=== PATIENT | female | born 1960 | race Caucasian/White ===

== ENCOUNTER → 2016-06-07 | Outpatient (CLI) | payer OTHER ==
[2015-05-28 08:23] VITALS: BP 146/72
[~2016-06-07] MED LIST: ASPI81TA44 PO; ATOR20TA58 PO; BUDE10.2 IH; CYCL10TA2 PO; DAPA10TA PO; FLUO20CA16 PO; FURO20TA3 PO; GABA600T2 PO; INSU100V13 SQ; MONT10TA6 PO; NAPR1TAB21 PO; OXYC20TA34 PO; RANI150C PO; VENTOLIN HFA18 GM INH
--- NOTE | 2016-06-07 17:38 | RAD ---
DATE: 06/07/2016 EXAM: DIGITAL SCREEN BILAT W/CAD HISTORY: Screening study. COMPARISON: 04/28/2015 This study was interpreted with the benefit of Computerized Aided Detection (CAD). FINDINGS: Digital MLO and CC mammograms of both breasts were obtained. Additional CC digital mammograms of both breasts were obtained. Comparison study is dated 04/28/2015 The breast parenchyma is composed of scattered fibroglandular densities which can obscure a lesion on mammography (breast density code B). No spiculated mass is seen. No malignant appearing calcification or area of architectural distortion is noted. A few benign-appearing calcifications are seen scattered throughout both breasts. Since the previous examination there has been no significant interval change. IMPRESSION: BI-RADS Category 1, negative. There is no mammographic evidence of malignancy. Routine yearly screening mammography is recommended for follow-up. BI-RADS CATEGORY: 1 NEGATIVE RECOMMENDED FOLLOW-UP: 12M 12 MONTH FOLLOW-UP PQRS compliance statement: Patient information was entered into a reminder system with a target due date 06/07/2017 for the next mammogram. Mammography is a sensitive method for finding small breast cancers, but it does not detect them all and is not a substitute for careful clinical examination. A negative mammogram does not negate a clinically suspicious finding and should not result in delay in biopsying a clinically suspicious abnormality. "Our facility is accredited by the [employer] Mammography Program."
== END | disposition home or self-care (01) ==
LOC: MAMMO 08:46
PROVIDERS: ATTEND Family Medicine
DX: Z12.31 Encounter for screening mammogram for malignant neoplasm of breast (principal)
CPT/HCPCS: G0202; 77067

== ENCOUNTER → 2016-08-25 | Outpatient (CLI) | payer OTHER ==
[2015-05-28 08:23] VITALS: BP 146/72
[~2016-08-25] MED LIST changes: +REGADENOSON 0.4 MG/5 ML DISP.SYRIN. IV ONE
--- NOTE | 2016-08-25 18:18 | RAD ---
APPROVED REPORT Test Type: Pharmacological Stress Nurse/Tech: Tian Pate Test Indications: chest pain, palpitations Cardiac History: see ehr Medications: see ehr Medical History: see ehr Resting ECG: SR Resting Heart Rate: 82 bpm Resting Blood Pressure: 110/56mmHg Pretest Chest Pain: None Nurse/Tech Notes Lungs CTA, S1, S2 Consent: The procedure was explained to the patient in lay terms. Informed consent was witnessed. Prabhakar eout was entered into [employer]. History and Stress Test performed by Tian Pate R.N. Pharm. Details Pharmacologic stress testing was performed using 0.4mg per 5ml of regadenoson given intravenously ove r 7-10 seconds. Stress Symptoms No chest pain or symptoms. POST EXERCISE Reason for Termination: Infusion complete Max HR: 100 bpm Max Blood Pressure: 126/63mmHg Blood Pressure response to exercise: Normal blood pressure response during stress. Chest Pain: No. Arrhythmia: No. ST Change: No. INTERPRETATION Stress EKG Conclusion: No acute changes were noted. Imaging Protocol IMAGE PROTOCOL: Rest Tc-99m/stress Tc-99m 1 day Rest: Stress: Viability: Radiopharm.Tc99m SiaylcvwiAh90h Sestamibi Dose10.5mCi 32.1mCi Duration 15min. 10min. Img Date 08/25/2016 08/25/2016 Inj-Img [id number]. 60min. Rest Admin Site:IV - Left AntecubitalAdministrator:RT David (R)(N) Stress Admin Site: IV - Left AntecubitalAdministrator: ADRIANA Hawley STRESS DATA End Diast. Vol.66.0mlAv. Heart Rate89.0bpm End Syst. Vol.5.0mlCO Index BSA0.0L/min Myocardial Rzsd110.0gEject. Pbrpqbuw45.0% Stress Rates Pk. Fill Rate3.06EDV/secLVtime Pk. Fill 96.50msec Pk. Empty Rate5.84ESV/secLVtime Pk. Xwdxh487.71msec 04/06 Pk. Fill1.85EDV/sec Stress Scores Regional WT0.00Summed WT3.00 Regional WM0.00Summed WM0.00 LV Perf. Quant 17 Seg. SSS5.00 17 Seg. SRS5.00 17 Seg. SDS3.00 Stress Defect Extent (% LAD)0.00Rest Defect Extent (% LAD)0.00Rev. Defect Extent (% LAD)0.00 Stress Defect Extent (% LCX) 40.00Rest Defect Extent (% LCX)43.80Rev. Defect Extent (% LCX)0.00 Stress Defect Extent (% RCA)0.00Rest Defect Extent (% RCA)0.00Rev. Defect Extent (% RCA)0.00 Stress Defect Extent (% KI)7.00Rest Defect Extent (% KI)7.60Rev. Defect Extent (% KI)0.00 Conclusion 1. No perfusion defects suggestive of myocardial ischemia with pharmacological stress. 2. Moderate sized mixed perfusion defect seen in the lateral wall. 3. Since there is normal wall motion and wall thickening in the lateral wall the defect probably repr esents myocardial ischemia. 4. Normal wall motion and wall thickening with an ejection fraction of more than 80%. 5. Scan indicates moderate risk for future cardiac events.
== END | disposition home or self-care (01) ==
LOC: NM 08:43 → EDSTATUS 11:30
PROVIDERS: ATTEND Internal Medicine Cardiovascular Disease
DX: R07.9 Chest pain, unspecified (principal); R00.2 Palpitations; Z82.49 Family history of ischemic heart disease and other diseases of the circulatory system
CPT/HCPCS: 78452; 93017; 93225; 96374; 96375; 96376; A9500; J2785

== ENCOUNTER → 2016-11-08 | Outpatient (CLI) | payer OTHER ==
[2015-05-28 08:23] VITALS: BP 146/72
[~2016-11-08] MED LIST changes: -REGADENOSON 0.4 MG/5 ML DISP.SYRIN. IV ONE
--- NOTE | 2016-11-08 11:26 | RAD ---
Indication pain. AP oblique and lateral views of the right wrist were obtained. No bony abnormality is seen
== END | disposition home or self-care (01) ==
LOC: RAD 10:47
PROVIDERS: ATTEND Family Medicine
DX: M25.531 Pain in right wrist (principal)
CPT/HCPCS: 73110

== ENCOUNTER 2016-11-15 09:52 | Outpatient (CLI) | payer OTHER ==
[2016-11-15] VITALS (14 sets, daily range): BP systolic 118–141; BP diastolic 62–84
[~2016-11-15] VITALS: Ht 160 cm; Wt 90.7 kg
[2016-11-15 10:19] LABS: HEMATOCRIT 45.9 % (36.0-47.0); HEMOGLOBIN 15.6 g/dL (12.0-15.5); RED BLOOD COUNT 5.57 x10^6/uL (3.50-5.40); RED CELL DISTRIBUTION WIDTH 16.4 % (11.5-14.5); WHITE BLOOD COUNT 9.3 x10^3/uL (4.0-11.0)
[2016-11-15] MEDS ORDERED: ERGO500027 PO (10:20)
[2016-11-15] MEDS ORDERED: OXYC10TA PO (10:20)
[2016-11-15] MEDS ORDERED: INSU100I16 SQ (10:20)
[2016-11-15] MEDS ORDERED: TERB250T8 PO (10:20)
[2016-11-15] MEDS ORDERED: LIDOCAINE 2% 20 ML VIAL. ONE (10:31)
[2016-11-15] MEDS ORDERED: IODIXANOL 320 MG/ML 100 ML VIAL. ONE (10:31)
[2016-11-15] MEDS ORDERED: HEPARIN 25,000UTS/500ML PREMIX 500 ML IV ONE (10:31)
[2016-11-15 10:35] LABS: CALCIUM 8.4 mg/dL (8.5-10.1); CREATININE 0.6 mg/dL (0.6-1.0); GFR 103.4; POTASSIUM 4.1 mmol/L (3.5-5.1)
[2016-11-15 10:42] LABS: PROTHROMBIN TIME PATIENT 12.2 SEC (11.7-14.0)
[2016-11-15] MEDS ORDERED: IOHEXOL 300 MG/ML 100ML VIAL. ONE ×2 (10:44→11:36)
[2016-11-15] MEDS ORDERED: MIDAZOLAM HCL/PF 2 MG/2 ML VIAL. ONE (11:26)
[2016-11-15] MEDS ORDERED: fentaNYL PF VIAL 100 MCG/2 ML VIAL ONE (11:27)
[2016-11-15] MEDS ORDERED: IOHEXOL 300 MG/ML 100ML VIAL. IART ONE (11:45)
[2016-11-15] MEDS ORDERED: fentaNYL PF VIAL 100 MCG/2 ML VIAL IV ONE (11:45)
[2016-11-15] MEDS ORDERED: LIDOCAINE 2% 20 ML VIAL. IJ ONE (11:45)
[2016-11-15] MEDS ORDERED: MIDAZOLAM HCL/PF 2 MG/2 ML VIAL. IV ONE (11:45)
--- NOTE | 2016-11-15 12:32 | PDOC ---
MODERATE SEDATION ASSESSMENT RISKS/ALTERNATIVES Risks/Alternatives Risks and alternatives of this type of sedation and procedure discussed with: RISK/ALTERNATIVES: Patient H & P ON CHART H & P H & P on chart and reviewed for co-morbid conditions and appropriate labs. H&P ON CHART: Yes STATUS PREG STATUS ASSESSED: Yes MEDS/ALLERGIES REVIEWED Meds/Allergies Reviewed Medications and Allergies including time and route of recently administered narcotics and sedatives. MEDS/ALLERGIES REVIEWED: Yes ASA RATING ASA RATING: II AIRWAY ASSESSMENT Airway Assessment Airway patency, oral function limitations, presence of caps, crowns, dentures, partials, and ability to extend neck assessed. AIRWAY ASSESSMENT: Yes MALLAMPATI SCORE MALLAMPATI SCORE: II PRE-SEDATION ASSESSMENT PRE-SEDATION ASSESSMENT: Yes DRE BECKWITH MD Nov 15, 2016 12:32
--- NOTE | 2016-11-15 18:26 | CARD ---
APPROVED REPORT Procedure(s) performed: SEDATION TIME: 38 MINUTES HISTORY hypertension: dyslipidemia. INDICATION The indication(s) include : positive stress test, chest pain. CASE TECHNIQUE The patient was brought electively into the cardiac catheterization lab. A timeout was performed conf irming the patient's name, date of , procedure, and site of procedure. All necessary parties wer e wearing the appropriate personal protective equipment and radiation monitoring devices. After expla ining the risks and benefits of the procedure, informed consent was obtained.(See nursing notes for m edications administered). The right groin was sterilely prepped and draped. The right femoral groin w as infiltrated with 2% Lidocaine subcutaneous anesthesia. During this case, Fluoroscopy and low osmol ar contrast were used for imaging. A sheath was inserted into the right femoral artery without diffic ulty. Coronary angiography was performed using coronary diagnostic catheters. The left coronary syste m was accessed and visualized with a Diagnostic catheter. The right coronary system was accessed and visualized with a Diagnostic catheter. The left ventricle was accessed and visualized with a Diagnost ic catheter. Left ventricular/Aortic Valve gradient assessed on pullback. Left ventriculogram was per formed in CREWS projection. Hemostasis was obtained with manual pressure following sheath removal witho ut any complications. The patient tolerated the procedure well and there were no complications associ ated with the procedure. Coronary Angiography The patient's coronary anatomy is right dominant. The left main coronary artery is a large size vessel free of disease. The left main trifurcates to th e left anterior descending, circumflex, and ramus. The left anterior descending artery is a medium size vessel free of disease. The first diagonal branc h is a small size vessel free of disease. The second diagonal branch is a small size vessel free of d isease. The third diagonal branch is a small size vessel free of disease. The circumflex artery is a medium size vessel free of disease. The first obtuse marginal branch is a small size vessel free of disease. The second obtuse marginal branch is a small size vessel free of d isease. The third obtuse marginal branch is a small size vessel free of disease. The ramus intermedius artery is a small size vessel free of disease. The right coronary artery is a large size vessel free of disease. The right posterior descending tristan ry is a medium size vessel free of disease. The right posterolateral branch is a small size vessel fr ee of disease. Left Ventriculography The left ventricle is normal in size with normal contractility. The left ventricular ejection fractio n is estimated to be 80%. The left ventricular end diastolic pressure is 16 mmHg. There was no gradie nt across the aortic valve upon pullback. Conclusion This pt has no significant CAD and a high normal LV systolic function. I would recommend medical treatment with diet, exercise, weight loss and tight control of the BP
== END 2016-11-15 17:15 | disposition home or self-care (01) ==
LOC: CCL 09:52
PROVIDERS: ATTEND Internal Medicine Cardiovascular Disease
DX: R94.39 Abnormal result of other cardiovascular function study (principal); E78.5 Hyperlipidemia, unspecified; E78.00 Pure hypercholesterolemia, unspecified; J44.9 Chronic obstructive pulmonary disease, unspecified; K21.9 Gastro-esophageal reflux disease without esophagitis; E11.9 Type 2 diabetes mellitus without complications; F41.9 Anxiety disorder, unspecified; F32.9 Major depressive disorder, single episode, unspecified; Z90.710 Acquired absence of both cervix and uterus; Z87.39 Personal history of other diseases of the musculoskeletal system and connective tissue; Z72.0 Tobacco use; Z79.01 Long term (current) use of anticoagulants
CPT/HCPCS: 36415; 80048; 85027; 85610; 85730; 93458; 99152; 99153; C1769; C1892; J1644; J2250; J3010; Q9967; J2001

== ENCOUNTER → 2017-05-18 | Outpatient (CLI) | payer OTHER | END | disposition home or self-care (01) | LOC: US 06:33 | DX: K76.0 Fatty (change of) liver, not elsewhere classified (principal); R16.0 Hepatomegaly, not elsewhere classified | CPT/HCPCS: 76705 ==

== ENCOUNTER 2017-05-29 08:16 | Inpatient (IN) | payer OTHER ==
[2017-05-29] MEDS ORDERED: IPRATRPIUM/ALBUTEROL 0.5/2.5MG 3 ML NEBU. (08:33)
[2017-05-29] MEDS: IPRATRPIUM/ALBUTEROL 0.5/2.5MG 3 ML NEBU. NEB ×3 (08:35→19:33)
[2017-05-29 08:53] LABS: ADD MAN DIFF? NO
[2017-05-29 09:00] LABS: BASO % 0 % (0-3); EOS % 0 % (0-3); HEMATOCRIT 42.5 % (36.0-47.0); HEMOGLOBIN 14.4 g/dL (12.0-15.5); LYMPH # 1.2 x10^3/uL (1.0-4.8); LYMPH % 13 % (24-48); MEAN CORPUSCULAR HEMOGLOBIN 30 pg (25-35); MEAN CORPUSCULAR HGB CONC 34 g/dL (31-37); MEAN CORPUSCULAR VOLUME 87 fL (79-100); MONO # 1.3 x10^3/uL (0.0-1.1); MONO % 15 % (0-9); NEUT # 6.5 x10^3uL (1.8-7.7); NEUT % 72 % (31-73); PLATELET COUNT 132 x10^3/uL (140-400); RED BLOOD COUNT 4.87 x10^6/uL (3.50-5.40); RED CELL DISTRIBUTION WIDTH 13.9 % (11.5-14.5)
[2017-05-29] MEDS: ONDANSETRON PF 4 MG/2 ML VIAL. IV (09:07)
[2017-05-29] MEDS: IV NORMAL SALINE 1000ML BAG 1,000 ML IV ×4 (09:11→20:26)
[2017-05-29 09:15] LABS: LIPASE 146 U/L (73-393)
[2017-05-29 09:16] LABS: ANION GAP 12 (6-14); BLOOD UREA NITROGEN 27 mg/dL (7-20); BUN/CREATININE RATIO 34 (6-20); CALCIUM 8.6 mg/dL (8.5-10.1); CARBON DIOXIDE 26 mmol/L (21-32); CHLORIDE 93 mmol/L (98-107); CREATININE 0.8 mg/dL (0.6-1.0); GFR 74.2; GLUCOSE 261 mg/dL (70-99); POTASSIUM 4.5 mmol/L (3.5-5.1); SODIUM 131 mmol/L (136-145)
[2017-05-29 09:21] LABS: ALBUMIN 2.4 g/dL (3.4-5.0); ALBUMIN/GLOBULIN RATIO 0.5 (1.0-1.7); ALK PHOS 94 U/L (46-116); ALT (SGPT) 22 U/L (14-59); AST (SGOT) 43 U/L (15-37); TOTAL BILIRUBIN 0.5 mg/dL (0.2-1.0); TOTAL PROTEIN 7.1 g/dL (6.4-8.2)
[2017-05-29] MEDS: ALBUTEROL SULFATE 2.5 MG/3 ML NEBU. CONT NEB (09:23)
[2017-05-29 09:38] LABS: LACTIC ACID 1.5 mmol/L (0.4-2.0)
[2017-05-29 09:41] LABS: BASE EXCESS ABG -2 mmol/L (-3-3); HCO3 ABG 23 mmol/L (21-28); PCO2 ABG 43 mmHg (35-46); PH ABG 7.35 (7.35-7.45); PO2 ABG 60 mmHg (75-108); SAT O2 ABG 90 % (92-99)
[2017-05-29 09:55] LABS: NT-PRO BNP 268 pg/mL (0-124)
[2017-05-29 10:41] LABS: INFLUENZA A PATIENT NEGATIVE (NEGATIVE)
[2017-05-29 10:42] LABS: INFLUENZA B PATIENT POSITIVE (NEGATIVE); OBC FLU VALID
[2017-05-29] MEDS ORDERED: ONDANSETRON PF 4 MG/2 ML VIAL. IV (12:00)
[2017-05-29] MEDS ORDERED: DEXTROSE 50% 25 GM / 50ML DISP.SYRIN. IV (12:00)
[2017-05-29] MEDS: OSELTAMIVIR 75 MG CAPSULE PO ×2 (12:10→20:25)
[2017-05-29] MEDS: ACETAMINOPHEN 500 MG TABLET PO (12:24)
[2017-05-29] MEDS: CYCLOBENZAPRINE 10 MG TABLET. PO ×2 (12:25→20:25)
[2017-05-29] MEDS: ASPIRIN CHEWABLE 81 MG TABLET. PO (12:25)
[2017-05-29] MEDS: ASCORBIC ACID 500 MG TABLET PO ×2 (12:25→20:25)
[2017-05-29] MEDS: FLUoxetine HCL 20 MG CAPSULE PO (12:25)
[2017-05-29] MEDS: NICOTINE 21MG PATCH. TD (12:26)
[2017-05-29] MEDS: oxyCODONE IR 5 MG TABLET PO (12:36)
[2017-05-29 12:44] LABS: BILIRUBIN,URINE SMALL (NEG); CLARITY,URINE TURBID; COLOR,URINE AMBER; GLUCOSE,URINE 250 mg/dL (NEG); NITRITE,URINE NEGATIVE (NEG); PROTEIN,URINE 100 mg/dL (NEG-TRACE)
[2017-05-29] MEDS ORDERED: NON FORMULARY ITEM (Albuterol Sulfate (Ventolin Hfa Inhaler) 2 PUFF) INH (13:00)
[2017-05-29 13:08] LABS: BACTERIA,URINE 0 /HPF (0-FEW); SQUAMOUS EPITHELIAL CELL,UR MANY /LPF
[2017-05-29] MEDS: GABAPENTIN 300 MG CAPSULE. PO ×2 (13:36→20:25)
[2017-05-29] MEDS: FAMOTIDINE 20 MG TABLET. PO ×2 (13:37→20:25)
[2017-05-29] MEDS: ALBUTEROL SULFATE 2.5 MG/3 ML NEBU. NEB ×2 (16:00→19:35)
[2017-05-29 16:20] LABS: POC GLUCOSE 236 mg/dL (70-99)
[2017-05-29] MEDS: INSULIN ASPART 300 UNITS/3 ML INSULN.PEN SQ (17:13)
[2017-05-29] MEDS: BUDESONIDE 0.5 MG/2 ML NEBU. NEB (19:32)
[2017-05-29 20:25] LABS: POC GLUCOSE 162 mg/dL (70-99)
[2017-05-29] MEDS: MONTELUKAST SODIUM 10 MG TABLET. PO (20:25)
[2017-05-29] MEDS: INSULIN DETEMIR 300 UNITS/3 ML INSULN.PEN. SQ (20:30)
[2017-05-29] MEDS: ATORVASTATIN CALCIUM 20 MG TABLET PO (20:31)
[2017-05-29] MEDS ORDERED: NON FORMULARY ITEM (Budesonide/Formoterol Fumarate (Symbicort 160-4.5 Mcg Inhaler) 1 PUFF) IH (21:00)
[2017-05-30 05:53] LABS: ANION GAP 10 (6-14); BLOOD UREA NITROGEN 15 mg/dL (7-20); CARBON DIOXIDE 26 mmol/L (21-32); CHLORIDE 102 mmol/L (98-107); CREATININE 0.5 mg/dL (0.6-1.0); GFR 127.6; GLUCOSE 57 mg/dL (70-99); POTASSIUM 3.4 mmol/L (3.5-5.1); SODIUM 138 mmol/L (136-145)
[2017-05-30] MEDS: INSULIN ASPART 300 UNITS/3 ML INSULN.PEN SQ ×3 (07:30→16:30)
[2017-05-30] MEDS: ALBUTEROL SULFATE 2.5 MG/3 ML NEBU. NEB ×2 (08:00→12:00)
[2017-05-30] MEDS: IV NORMAL SALINE 1000ML BAG 1,000 ML IV ×2 (08:03→18:17)
[2017-05-30 08:08] LABS: POC GLUCOSE 61 mg/dL (70-99)
[2017-05-30 08:08] LABS: POC GLUCOSE 67 mg/dL (70-99)
[2017-05-30] MEDS: IPRATRPIUM/ALBUTEROL 0.5/2.5MG 3 ML NEBU. NEB ×4 (08:12→19:34)
[2017-05-30] MEDS: BUDESONIDE 0.5 MG/2 ML NEBU. NEB ×2 (08:12→19:34)
[2017-05-30] MEDS: GABAPENTIN 300 MG CAPSULE. PO ×3 (09:00→20:50)
[2017-05-30] MEDS: ASPIRIN CHEWABLE 81 MG TABLET. PO (09:37)
[2017-05-30] MEDS: FAMOTIDINE 20 MG TABLET. PO ×2 (09:37→20:51)
[2017-05-30] MEDS: FLUoxetine HCL 20 MG CAPSULE PO (09:38)
[2017-05-30] MEDS: ASCORBIC ACID 500 MG TABLET PO ×2 (09:38→20:51)
[2017-05-30] MEDS: CYCLOBENZAPRINE 10 MG TABLET. PO ×2 (09:38→20:50)
[2017-05-30] MEDS: OSELTAMIVIR 75 MG CAPSULE PO ×2 (09:38→20:51)
[2017-05-30] MEDS: NICOTINE 21MG PATCH. TD (09:39)
[2017-05-30] MEDS: oxyCODONE IR 5 MG TABLET PO ×2 (10:04→18:19)
[2017-05-30 11:54] LABS: POC GLUCOSE 67 mg/dL (70-99)
[2017-05-30 15:25] LABS: LEGIONELLA AG UR Negative (Negative)
[2017-05-30 17:20] LABS: POC GLUCOSE 132 mg/dL (70-99)
[2017-05-30] MEDS ORDERED: ALBUTEROL SULFATE 2.5 MG/3 ML NEBU. NEB (20:00)
[2017-05-30 20:49] LABS: POC GLUCOSE 177 mg/dL (70-99)
[2017-05-30] MEDS: ATORVASTATIN CALCIUM 20 MG TABLET PO (20:50)
[2017-05-30] MEDS: LACTOBACILLUS RHAMNOSUS GG 1 CAPSULE. PO (20:50)
[2017-05-30] MEDS: MONTELUKAST SODIUM 10 MG TABLET. PO (20:50)
[2017-05-30] MEDS: INSULIN DETEMIR 300 UNITS/3 ML INSULN.PEN. SQ (20:56)
[2017-05-31] MEDS: IV NORMAL SALINE 1000ML BAG 1,000 ML IV (03:37)
[2017-05-31] MEDS: oxyCODONE IR 5 MG TABLET PO (03:37)
[2017-05-31] MEDS: IPRATRPIUM/ALBUTEROL 0.5/2.5MG 3 ML NEBU. NEB (07:22)
[2017-05-31] MEDS: BUDESONIDE 0.5 MG/2 ML NEBU. NEB (07:23)
[2017-05-31] MEDS: INSULIN ASPART 300 UNITS/3 ML INSULN.PEN SQ (07:30)
[2017-05-31 08:05] LABS: POC GLUCOSE 55 mg/dL (70-99)
[2017-05-31 08:05] LABS: POC GLUCOSE 84 mg/dL (70-99)
[2017-05-31] MEDS: ASPIRIN CHEWABLE 81 MG TABLET. PO (08:44)
[2017-05-31] MEDS: ASCORBIC ACID 500 MG TABLET PO (08:44)
[2017-05-31] MEDS: NICOTINE 21MG PATCH. TD (08:44)
[2017-05-31] MEDS: LACTOBACILLUS RHAMNOSUS GG 1 CAPSULE. PO (08:44)
[2017-05-31] MEDS: CYCLOBENZAPRINE 10 MG TABLET. PO (08:44)
[2017-05-31] MEDS: OSELTAMIVIR 75 MG CAPSULE PO (08:44)
[2017-05-31] MEDS: FLUoxetine HCL 20 MG CAPSULE PO (08:44)
[2017-05-31] MEDS: GABAPENTIN 300 MG CAPSULE. PO (08:44)
[2017-05-31] MEDS: FAMOTIDINE 20 MG TABLET. PO (08:52)
[2017-05-31] MEDS: PNEUMOC CONJ VACC 23-VALENT 0.5 ML VIAL. VAX IM (10:05)
[2017-05-31] MEDS: FLU VACC QS2017-18 (36MOS+)/PF 0.5 ML SYRINGE. VAX IM (10:06)
[2017-06-05] MEDS ORDERED: ERGOCALCIFEROL (VITAMIN D2) 50,000 UNIT CAPSULE. PO (13:00)
== END 2017-05-31 11:02 | disposition home or self-care (01) | DRG 193 ==
LOC: 5 NORTH 10:30 → ER 08:16 → 5 NORTH 09:57
DX: J10.08 Influenza due to other identified influenza virus with other specified pneumonia (principal); J96.21 Acute and chronic respiratory failure with hypoxia; Z99.81 Dependence on supplemental oxygen; Z88.8 Allergy status to other drugs, medicaments and biological substances; J15.9 Unspecified bacterial pneumonia; E86.0 Dehydration; J44.0 Chronic obstructive pulmonary disease with (acute) lower respiratory infection; J44.1 Chronic obstructive pulmonary disease with (acute) exacerbation; E11.65 Type 2 diabetes mellitus with hyperglycemia; E78.5 Hyperlipidemia, unspecified; F17.200 Nicotine dependence, unspecified, uncomplicated; F32.9 Major depressive disorder, single episode, unspecified; F41.1 Generalized anxiety disorder; G89.29 Other chronic pain; K21.9 Gastro-esophageal reflux disease without esophagitis; Z90.710 Acquired absence of both cervix and uterus; Z98.49 Cataract extraction status, unspecified eye; M54.9 Dorsalgia, unspecified; J18.1 Lobar pneumonia, unspecified organism; I08.3 Combined rheumatic disorders of mitral, aortic and tricuspid valves
CPT/HCPCS: 36415; 36600; 71045; 80048; 80053; 81001; 82805; 82962; 83605; 83690; 83880; 85025; 87070; 87086; 87186; 87205; 87449; 87804; 87804-59; 90686; 90732; 93005; 93306; 94640; 94644; 94760; 96365; 96375; 99285; 99285-25; J1815; J1956; J2405; J7030; J7613; J7620; J7626

== ENCOUNTER → 2017-09-07 | Outpatient (CLI) | payer OTHER | END | disposition home or self-care (01) | LOC: RAD 10:11 | DX: J18.9 Pneumonia, unspecified organism (principal); R91.8 Other nonspecific abnormal finding of lung field | CPT/HCPCS: 71046 ==

== ENCOUNTER → 2017-09-12 | Outpatient (CLI) | payer OTHER | END | disposition home or self-care (01) | LOC: MAMMO 14:18 | DX: Z12.31 Encounter for screening mammogram for malignant neoplasm of breast (principal) | CPT/HCPCS: 77067 ==

== ENCOUNTER → 2018-08-04 | Outpatient (CLI) | payer OTHER ==
[2017-05-31 10:30] VITALS: BP 141/63
[~2018-08-04] MED LIST changes: +ASCO500T3 PO; -ASPI81TA44 PO; +ASPI81TA59 PO; +ERGO500027 PO; -GABA600T2 PO; +GABA600T7 PO; +INSU100I16 SQ; +INSU100V11 SQ; +LEVO500T59 PO; +OSEL75CA PO; +OXYC10TA PO; +TERB250T11 PO
--- NOTE | 2018-08-15 18:36 | EEG ---
DATE OF SERVICE: 08/04/2018 ELECTROENCEPHALOGRAM NUMBER: [id number] OBJECTIVE: This is a 58-year-old female patient with history of abnormal movements. EEG was requested to help rule out seizure. METHODS: Twenty electrodes were applied according to the international 10-20 electrode placement system. EKG monitoring, hyperventilation, intermittent photic stimulation, monopolar and bipolar montages are routinely utilized. The record was obtained on a digital system with video monitoring. FINDINGS: 1. Background: The patient was recorded in the awake and drowsy states. No actual sleep state was recorded. The overall background amplitude is 10-30 microvolts. A posterior dominant rhythm of 8 Hz is observed. 2. Abnormalities: No specific epileptiform discharge or electrographic seizure is seen. No focal or diffuse slowing. 3. Activation: Hyperventilation was performed with good efforts and normal response. Intermittent photic stimulation was performed with photic driving. No specific epileptiform discharge or electrographic seizure induced by hyperventilation or intermittent photic stimulation. IMPRESSION: This electroencephalogram is a normal study for the awake and drowsy states. No actual sleep state was recorded. No focal, lateralizing, specific epileptiform discharge or electrographic seizure is seen. BREA HERRING MD DR: Marzena JOB#: [id number] / [id number] KIMBERLEE
== END | disposition home or self-care (01) ==
LOC: RT 12:45
PROVIDERS: ATTEND Psychiatry & Neurology Neurology
DX: R25.9 Unspecified abnormal involuntary movements (principal)
CPT/HCPCS: 95816

== ENCOUNTER → 2018-08-30 | Outpatient (CLI) | payer OTHER ==
[2017-05-31 10:30] VITALS: BP 141/63
[2018-08-30 12:22] LABS: BARBITURATES POS (NEG); BENZODIAZEPINES NEG (NEG); CANNABINOIDS NEG (NEG); COCAINE NEG (NEG); METHADONE NEG (NEG); OPIATES NEG (NEG); PHENCYCLIDINE NEG (NEG)
[2018-08-30 12:23] LABS: AMPHETAMINE/METHAMPHETAMINE NEG (NEG)
== END | disposition home or self-care (01) ==
LOC: LAB 11:19
PROVIDERS: ATTEND Psychiatry & Neurology Neurology
DX: R25.9 Unspecified abnormal involuntary movements (principal)
CPT/HCPCS: 80307

== ENCOUNTER → 2018-09-12 | Outpatient (CLI) | payer OTHER ==
[2017-05-31 10:30] VITALS: BP 141/63
[~2018-09-12] MED LIST changes: +MONT10TA49 PO; -MONT10TA6 PO
--- NOTE | 2018-09-13 09:11 | RAD ---
DATE: 09/12/2018 EXAM: DIGITAL SCREEN BILAT W/CAD HISTORY: Routine screening COMPARISON: 09/12/2017 This study was interpreted with the benefit of Computerized Aided Detection (CAD). Breast Density: SCATTERED The breast parenchyma shows scattered fibroglandular densities. Breast parenchyma level B. FINDINGS: No new or enlarging breast densities are seen. Several benign type calcifications are again noted. No suspicious microcalcifications have developed. IMPRESSION: There is no mammographic evidence of malignancy in either breast. BI-RADS CATEGORY: 2 BENIGN FINDING(S) RECOMMENDED FOLLOW-UP: 12M 12 MONTH FOLLOW-UP PQRS compliance statement: Patient information was entered into a reminder system with a target due date for the next mammogram. Mammography is a sensitive method for finding small breast cancers, but it does not detect them all and is not a substitute for careful clinical examination. A negative mammogram does not negate a clinically suspicious finding and should not result in delay in biopsying a clinically suspicious abnormality. "Our facility is accredited by the [employer] Mammography Program."
== END | disposition home or self-care (01) ==
LOC: MAMMO 14:36
PROVIDERS: ATTEND Family Medicine
DX: Z12.31 Encounter for screening mammogram for malignant neoplasm of breast (principal); N64.89 Other specified disorders of breast
CPT/HCPCS: 77067

== ENCOUNTER → 2019-03-12 | Outpatient (CLI) | payer MEDICAID ==
[2017-05-31 10:30] VITALS: BP 141/63
--- NOTE | 2019-03-12 17:49 | RAD ---
Examination: GORDON ART STUDY LOWER EXTREM MOI History: Former smoker, diabetes, leg pain Comparison/Correlation: None Findings: GORDON exam was performed. Right brachial blood pressure of 143 mmHg noted. Left brachial blood pressure 152 mmHg mercury. Right ankle blood pressure of 166 mm millimeters mercury. Left ankle blood pressure of 157 mmHg. Right GORDON is 1.09. Left GORDON is 1.03. Impression: Normal bilateral GORDON. Electronically signed by: Ron Valdez MD (03/12/2019 5:47 PM) [facility]
== END | disposition home or self-care (01) ==
LOC: US 15:18
PROVIDERS: ATTEND Family Medicine
DX: E11.51 Type 2 diabetes mellitus with diabetic peripheral angiopathy without gangrene (principal); I10 Essential (primary) hypertension; Z87.891 Personal history of nicotine dependence
CPT/HCPCS: 93922

== ENCOUNTER → 2019-12-14 | Outpatient (CLI) | payer MEDICAID ==
[2017-05-31 10:30] VITALS: BP 141/63
[~2019-12-14] MED LIST changes: -TERB250T11 PO; +TERB250T84 PO
--- NOTE | 2019-12-14 16:13 | CARD ---
MR#: [id number] Date of Study: 12/14/2019 Ordering Physician: RICHARD SIGALA, Referring Physician: RICHARD SIGALA, Tech: Lizet Chen APPROVED REPORT EXAM: Two-dimensional and M-mode echocardiogram with Doppler and color Doppler. Other Information Quality : AverageHR: 62bpm Technically limited study due to body habitus. INDICATION Hypertension/HCVD RISK FACTORS Hypertension Hyperlipidemia Diabetes 2D DIMENSIONS RVDd3.1 (2.9-3.5cm)Left Atrium(2D)3.7 (1.6-4.0cm) IVSd1.3 (0.7-1.1cm)Aortic Root(2D)2.8 (2.0-3.7cm) LVDd4.5 (3.9-5.9cm)LVOT Diameter1.9 (1.8-2.4cm) PWd1.0 (0.7-1.1cm)LVDs2.7 (2.5-4.0cm) FS (%) 39.7 %SV63.7 ml LVEF(%)70.5 (>50%) Aortic Valve AoV Peak Ras.158.7cm/sAoV VTI41.5cm AO Peak GR.10.1mmHgLVOT Peak Ras.136.8cm/s AO Mean GR.5mmHgAVA (VMAX)2.54cm2 Mitral Valve MV E Wjigstac981.1cm/sMV E Peak Gr.6mmHg MV DECEL [id number] A Cqfhxpfq76.0cm/s MV E Mean Gr.2mmHgE/A Ratio1.3 Pulmonary Valve PV Peak Wwrnlhbk64.3cm/s Tricuspid Valve TR P. Zwofekzl130mk/sRAP WYZDZVXL5apEn TR Peak Gr.53kvFpXUXY79ptMb Pulmonary Vein S1 Cwlbqvjh09.9cm/sD2 Cmpifjgo39.2cm/s PVa noecboih971fjrs LEFT VENTRICLE The left ventricle is normal size. There is mild to moderate concentric left ventricular hypertrophy. The left ventricular systolic function is normal and the ejection fraction is within normal range. T he Ejection Fraction is 55%. There is normal LV segmental wall motion. Transmitral Doppler flow patte rn is Grade II-pseudonormal filling dynamics. RIGHT VENTRICLE The right ventricle is normal size. There is normal right ventricular wall thickness. The right ventr icular systolic function is normal. ATRIA The left atrium size is normal. The right atrium size is normal. The interatrial septum is intact wit h no evidence for an atrial septal defect or patent foramen ovale as noted on 2-D or Doppler imaging. AORTIC VALVE The aortic valve is thickened but opens well. Doppler and Color Flow revealed no significant aortic r egurgitation. There is no significant aortic valvular stenosis. Calculated aortic valve area is 2.5 c m2 with maximum pressure gradient of 10 mmHg and mean pressure gradient of 6 mmHg. MITRAL VALVE The mitral valve is normal in structure and function. There is no evidence of mitral valve prolapse. There is no mitral valve stenosis. Doppler and Color-flow revealed trace mitral regurgitation. TRICUSPID VALVE The tricuspid valve is normal in structure and function. Doppler and Color Flow revealed trace tricus pid regurgitation with an estimated PAP of 24 mmHg. There is no tricuspid valve stenosis. PULMONIC VALVE The pulmonic valve is not well visualized. Doppler and Color Flow revealed trace pulmonic valvular re gurgitation. There is no pulmonic valvular stenosis. GREAT VESSELS The aortic root is normal in size. The ascending aorta is normal in size. The IVC is normal in size a nd collapses >50% with inspiration. PERICARDIAL EFFUSION There is no evidence of significant pericardial effusion. Critical Notification Critical Value: No <Conclusion> The left ventricular systolic function is normal and the ejection fraction is within normal range. Th e Ejection Fraction is 55%. There is normal LV segmental wall motion. Signed by : Richard Sigala, Electronically Approved : 12/14/2019 16:12:18
== END | disposition home or self-care (01) ==
LOC: ECHO 12:45
PROVIDERS: ATTEND Internal Medicine Cardiovascular Disease
DX: I11.9 Hypertensive heart disease without heart failure (principal)
CPT/HCPCS: 93306

== ENCOUNTER → 2020-11-26 | Outpatient (CLI) | payer MEDICAID ==
[2017-05-31 10:30] VITALS: BP 141/63
[2020-11-26 08:44] LABS: ALBUMIN 3.2 g/dL (3.4-5.0); ALBUMIN/GLOBULIN RATIO 0.9 (1.0-1.7); CALCIUM 8.9 mg/dL (8.5-10.1); GFR 56.6; TOTAL BILIRUBIN 0.1 mg/dL (0.2-1.0); TOTAL PROTEIN 6.9 g/dL (6.4-8.2)
== END ==
LOC: LAB 08:04
PROVIDERS: ATTEND Internal Medicine Cardiovascular Disease
DX: I10 Essential (primary) hypertension (principal)
CPT/HCPCS: 36415; 80053; 83880

== ENCOUNTER 2021-01-02 09:44 | Emergency (ER) | payer MEDICAID ==
[~2021-01-02] VITALS: Ht 157.5 cm; Wt 100.0 kg
[~2021-01-02 09:44] MED LIST changes: +TERB250T72 PO; -TERB250T84 PO
[2021-01-02 09:56] VITALS: BP 151/63
--- NOTE | 2021-01-02 10:43 | ED.ADGEN ---
Past Medical History Past Medical History: Anxiety, COPD, Depression, Diabetes-Type II Past Surgical History: Hysterectomy Smoking Status: Former Smoker Alcohol Use: None Drug Use: None General Adult EDM: Chief Complaint: HEAD INJURY/TRAUMA HPI: HPI: Patient is a 60 year old female coming in for head injury after a fall just prior to arrival. Patient states she tripped over a branch and fell forwards striking her forehead on the asphalt. Denies any loss of consciousness. Denies any vision changes, nausea or vomiting, neck pain, or altered level of consciou sness. Patient states she has prescription on her forehead as well as on her left knee. Denies any other extremity pain. Last tetanus unknown Review of Systems: Review of Systems: All other systems within normal limits except for as noted in the HPI Current Medications: Current Medications Medications (Trade) Dose Ordered Sig/Ty Start Time Stop Time Status Last Admin Dose Admin Diphtheria/ Tetanus/Acell Pertussis (ADACEL TDap SYRINGE) 0.5 ml ONCE ONCE 01/02/21 10:45 01/02/21 10:46 DC 01/02/21 11:13 0.5 ML Neomycin/ Polymyxin/ Bacitracin (Triple Antibiotic Ointment) 1 pkt 1X ONCE 01/02/21 10:45 01/02/21 10:46 DC 01/02/21 11:12 1 PKT Allergies: Allergies: Allergies Coded Allergies Type Severity Reaction Last Updated Verified tramadol Allergy Severe "i swell all up" 05/28/15 Yes Physical Exam: PE: Constitutional: Well developed, well nourished, no acute distress, non-toxic appearance. [] HENT: Normocephalic, left frontal hematoma, bilateral external ears normal, nose normal. [] Eyes: PERRLA, conjunctiva normal, no discharge. [] Neck: No rigidity, supple, no stridor. [] Cardiovascular: Regular rate and rhythm, brisk cap refill [] Lungs & Thorax: Non labored symmetric respirations, no tachypnea or respiratory distress [] Abdomen: Soft, nondistended. Skin: Warm, dry, no erythema, no rash. Abrasions to right forehead and right knee [] Back: Unremarkable Extremities: No deformities, range of motion grossly intact, no lower extremity edema [] Neurologic: Alert and oriented X 3, no focal deficits noted. [] Psychologic: Affect normal, judgement normal, mood normal. [] Current Patient Data: Vital Signs: Vital Signs Date Time Temp Pulse Resp B/P (MAP) Pulse Ox O2 Delivery O2 Flow Rate FiO2 01/02/21 09:56 98.3 79 16 151/63 (92) 98 Room Air 98.3 EKG: EKG: [] Heart Score: C/O Chest Pain: No Risk Factors: Risk Factors: DM, Current or recent (<one month) smoker, HTN, HLP, family history of CAD, obesity. Risk Scores: Score 0 - 3: 2.5% MACE over next 6 weeks - Discharge Home Score 4 - 6: 20.3% MACE over next 6 weeks - Admit for Clinical Observation Score 7 - 10: 72.7% MACE over next 6 weeks - Early Invasive Strategies Radiology/Procedures: Radiology/Procedures: [facility] [address] [place] [address] IMAGING REPORT Signed PATIENT: BETY ZACARIAS ACCOUNT: [id number] : 1960 LOCATION: ER AGE: 60 SEX: F EXAM STATUS: REG ER ORD. PHYSICIAN: ETHAN MURILLO MD REASON: head trauma, fall PROCEDURE: CT HEAD AND CERVICAL SPINE [facility] Compliance Statement: One or more of the following individualized dose reduction techniques were utilized for this examination: 1. Automated exposure control 2. Adjustment of the mA and/or kV according to patient size 3. Use of iterative reconstruction technique CT head and cervical spine without contrast 01/02/2021 10:41 AM INDICATION: Head trauma, fall COMPARISON: None available TECHNIQUE: Multiple axial CT images of the head were obtained from skull base through the vertex without intravenous contrast. Multiple axial CT images of the cervical spine were obtained without intravenous contrast. Coronal and sagittal reformats are provided. FINDINGS: Head: There is a left forehead scalp hematoma measuring 0.8 cm in maximal thickness and 3.6 cm in transverse dimension. Ventricles, sulci and basal cisterns are within normal limits. There is no hydrocephalus. Sena-white matter differentiation is normal. There is no acute intracranial hemorrhage. There is no mass, mass effect or midline shift. Posterior fossa is normal in appearance. Visualized portions of the orbits are normal with exception of bilateral lens replacement. Paranasal sinuses are well aerated. Mastoid air cells are well aerated. Calvaria is intact. Cervical spine: There is 2 mm anterolisthesis of C2 on C3. There is reversal the normal cervical lordosis with mild kyphosis centered at C4-C5. Skull base is intact. Craniocervical junction is normal in appearance. Atlantoaxial articulation is normal. Vertebral body heights are maintained without evidence for acute fracture. Mild to moderate facet arthropathy. No significant osseous neural foraminal stenosis. No significant osseous spinal canal stenosis. Transverse foramen are intact. There is no prevertebral soft tissue swelling. Thyroid gland is normal in appearance. 5 mm solid noncalcified pulmonary nodule identified at the right lung apex (series 8, image 56). Calcified plaque is identified at the left carotid bifurcation. Retropharyngeal course of the left cervical internal carotid artery. IMPRESSION: 1. No acute intracranial hemorrhage. Left forehead scalp hematoma without underlying calvarial defect. 2. No acute fracture of the cervical spine. Mild cervical spondylosis without significant neuroforaminal or spinal canal stenosis. 3. 5 mm solid noncalcified pulmonary nodule at the right lung apex. Fleischner guidelines for incidentally detected pulmonary nodules suggests no routine follow-up for low risk patients and optional CT at 12 months for high risk patients with solid noncalcified pulmonary nodules less than 6 mm in size. Electronically signed by: Bryan Miller MD (01/02/2021 11:22 AM) [id number] DICTATED and SIGNED BY: BRYAN MILLER MD DATE: 01/02/21 [id number] [] Course & Med Decision Making: Course & Med Decision Making Pertinent Labs and Imaging studies reviewed. (See chart for details) [] Dragon Disclaimer: Dragon Disclaimer: This electronic medical record was generated, in whole or in part, using a voice recognition dictation system. Departure Departure Impression: Primary Impression: Fall Additional Impressions: Traumatic hematoma of forehead Abrasion Disposition: HOME / SELF CARE / HOMELESS Condition: STABLE Referrals: Marialuisa LARSON MD (PCP) Patient Instructions: Wound Care, Abxi-gi-Dgoq Problem Qualifiers ETHAN MURILLO MD Jan 02, 2021 10:43
[2021-01-02] MEDS ORDERED: DIPH,PERTUSS(ACELL),TET VAC/PF 0.5 ML SYRINGE. VAX IM ONE (10:45)
[2021-01-02] MEDS ORDERED: NEOMY/BACITR/POLYMYXIN OINT PACKET. TP ONE (10:45)
--- NOTE | 2021-01-02 11:24 | RAD ---
PQRS Compliance Statement: One or more of the following individualized dose reduction techniques were utilized for this examinat ion: 1. Automated exposure control 2. Adjustment of the mA and/or kV according to patient size 3. Use of iterative reconstruction technique CT head and cervical spine without contrast 01/02/2021 10:41 AM INDICATION: Head trauma, fall COMPARISON: None available TECHNIQUE: Multiple axial CT images of the head were obtained from skull base through the vertex with out intravenous contrast. Multiple axial CT images of the cervical spine were obtained without intrav enous contrast. Coronal and sagittal reformats are provided. FINDINGS: Head: There is a left forehead scalp hematoma measuring 0.8 cm in maximal thickness and 3.6 cm in transvers e dimension. Ventricles, sulci and basal cisterns are within normal limits. There is no hydrocephalus. Sena-white matter differentiation is normal. There is no acute intracranial hemorrhage. There is no mass, mass e ffect or midline shift. Posterior fossa is normal in appearance. Visualized portions of the orbits are normal with exception of bilateral lens replacement. Paranasal sinuses are well aerated. Mastoid air cells are well aerated. Calvaria is intact. Cervical spine: There is 2 mm anterolisthesis of C2 on C3. There is reversal the normal cervical lordosis with mild k yphosis centered at C4-C5. Skull base is intact. Craniocervical junction is normal in appearance. Trevor antoaxial articulation is normal. Vertebral body heights are maintained without evidence for acute fracture. Mild to moderate facet arthropathy. No significant osseous neural foraminal stenosis. No significant osseous spinal canal stenosis. Transverse foramen are intact. There is no prevertebral soft tissue swelling. Thyroid gland is normal in appearance. 5 mm solid nonc alcified pulmonary nodule identified at the right lung apex (series 8, image 56). Calcified plaque is identified at the left carotid bifurcation. Retropharyngeal course of the left cervical internal car otid artery. IMPRESSION: 1. No acute intracranial hemorrhage. Left forehead scalp hematoma without underlying calvarial defect . 2. No acute fracture of the cervical spine. Mild cervical spondylosis without significant neuroforami nal or spinal canal stenosis. 3. 5 mm solid noncalcified pulmonary nodule at the right lung apex. Fleischner guidelines for inciden tally detected pulmonary nodules suggests no routine follow-up for low risk patients and optional CT at 12 months for high risk patients with solid noncalcified pulmonary nodules less than 6 mm in size. Electronically signed by: Breonna Hale MD (01/02/2021 11:22 AM) [id number]
== END 2021-01-02 11:38 | disposition home or self-care (01) ==
LOC: ER 09:44
DX: S00.83XA Contusion of other part of head, initial encounter (principal); J44.9 Chronic obstructive pulmonary disease, unspecified; E11.9 Type 2 diabetes mellitus without complications; F41.9 Anxiety disorder, unspecified; F32.9 Major depressive disorder, single episode, unspecified; Z88.8 Allergy status to other drugs, medicaments and biological substances; W18.09XA Striking against other object with subsequent fall, initial encounter; Y93.89 Activity, other specified; Y92.89 Other specified places as the place of occurrence of the external cause; Y99.8 Other external cause status
CPT/HCPCS: 70450; 72125; 90471; 90715; 99285-25

== ENCOUNTER 2021-04-14 16:16 | Emergency (ER) | payer MEDICAID ==
[~2021-04-14] VITALS: Ht 157.5 cm; Wt 98.1 kg
[~2021-04-14 16:16] MED LIST changes: +CYCL10TA19 PO; -CYCL10TA2 PO
[2021-04-14 16:32] VITALS: BP 122/47
--- NOTE | 2021-04-14 20:17 | PHYS DOC ---
Past Medical History Past Medical History: Anxiety, COPD, Depression, Diabetes-Type II Additional Past Medical Histor: Psoriasis Past Surgical History: Hysterectomy Smoking Status: Former Smoker Alcohol Use: None Drug Use: None General Adult EDM: Chief Complaint: SKIN RASH/ABSCESS HPI: HPI: Ms. Dailey is a 60 year old female who presents with left occipital region head pain and abscess. Patient states the "bump" first started two weeks ago and has slowly grown in size leading to headaches and sharp pain radiating to the neck area and behind the ear. To relieve the pain, she has tried oxycodeine with minor improvement along with heating pads at night. In addition to aforementioned symptoms, patient has endorsed some low grade fevers but no vision changes or hearing difficulties. Review of Systems: Review of Systems: Constitutional: Endorses low grade fever, denies chills Eyes: Denies vision changes or eye pain HENT: Denies nasal congestion or sore throat Respiratory: Denies cough or shortness of breath Cardiovascular: Denies chest pain or palpitations GI: Denies abdominal pain, hematochezia : Denies dysuria or hematuria Musculoskeletal: Denies back pain or joint pain Integument: Endorses rash and skin lesions Neurologic: Endorses headache, sensory changes; denies focal weakness Complete systems were reviewed and found to be within normal limits, except as documented in this note. Heart Score: C/O Chest Pain: N/A Current Medications: Current Medications Medications (Trade) Dose Ordered Sig/Ty Start Time Stop Time Status Last Admin Dose Admin Clindamycin HCl (Cleocin) 300 mg 1X ONCE 04/14/21 20:15 04/14/21 20:16 Lidocaine/ Epinephrine (LIDOCAINE 2%-EPI 1:100,000 multi-dose) 20 ml 1X ONCE 04/14/21 20:15 04/14/21 20:16 Allergies: Allergies: Allergies Coded Allergies Type Severity Reaction Last Updated Verified tramadol Allergy Severe "i swell all up" 05/28/15 Yes Physical Exam: PE: Constitutional: Well developed, well nourished, no acute distress, non-toxic appearance HENT: Normocephalic, atraumatic Eyes: PERRL, EOMI, conjunctiva normal, no discharge Neck: Normal range of motion, no tenderness, supple Lungs & Thorax: No respiratory distress, equal chest rise and fall, clear to auscultate bilaterally, no abnormal sounds Abdomen: Soft, no tenderness Skin: Left occipital scalp erythema and abscess 1.5 inches diameter; tenderness upon palpation Back: No tenderness, no CVA tenderness Extremities: No tenderness, ROM intact, no edema Neurologic: Alert and oriented X 3, normal motor function, normal sensory function, no focal deficits noted Psychologic: Affect normal, judgment normal Current Patient Data: Vital Signs: Vital Signs Date Time Temp Pulse Resp B/P (MAP) Pulse Ox O2 Delivery O2 Flow Rate FiO2 04/14/21 16:32 98.4 78 14 122/47 (72) Room Air 96.0 98.4 Course & Med Decision Making: Course & Med Decision Making Ms. Dailey is a 60 yo female who presented with left occipital scalp abscess. Upon obtaining a physical history and performing a thorough physical exam, it was determined the patient would benefit most from an incision and drainage of the abscess. Procedure was performed under local anaesthetic (Lidocaine). Patient stable for discharge with outpatient follow-up with PCP. Discussed findings and plan with patient, who acknowledges understanding and agreement. Patient discharged with Clindamycin and Diflucan to manage possible post antibiotic yeast infection. Dragon Disclaimer: Dragon Disclaimer: This electronic medical record was generated, in whole or in part, using a voice recognition dictation system. Incision and Drainage Incision and Drainage : Blade Size: 15 blade I & D Procedure: sterile drapes applied, sterile dressing applied, gauze wick placed Progress Verbal consent obtained. Time out performed. Hand hygiene utilized. Wound cleaned with ChloraPrep. Anesthesia obtained via a 25-gauge hypodermic needle with 1 mL's of lidocaine 2% with epinephrine. A 15 blade was utilized to make a 1 cm horizontal incision above the eschar formation and abscess drained via pressure. Copious irrigation performed. Wound well approximated and packed with 1/2 inch iodoform gauss. Patient tolerated procedure well and without difficulty. Empiric antibiotic ointment applied prior to sterile dressing. Departure Departure Impression: Primary Impression: Abscess of scalp Disposition: HOME / SELF CARE / HOMELESS Condition: STABLE Referrals: Marialuisa LARSON MD (PCP) Patient Instructions: Abscess, Care After Additional Instructions: Do not soak your wound. Remove packing in less than 24 hours. After that you may shower. Clean wound daily with soap and water. Use over the counter antibiotic ointment with each dressing change. You can use a sterile dressing as needed until bleeding has discontinued. Use [id number] ibuprofen and or Tylenol for pain discomfort. May also use previously prescribed pain medications as needed. Scripts Fluconazole (DIFLUCAN) 200 Mg Tablet 1 TAB PO DAILY, #2 TAB Take initial dose tomorrow Tuesday04/15/21. Take second dose upon completion of clindamycin antibiotic therapy. Prov: SANTIAGO LECHUGA DO 04/14/21 Clindamycin Hcl (CLINDAMYCIN HCL) 300 Mg Capsule 1 CAP PO TID for Infection for 7 Days, #21 CAP Prov: SANTIAGO LECHUGA DO 04/14/21 SANTIAGO LECHUGA DO Apr 14, 2021 20:17
[2021-04-14] MEDS: LIDOCAINE 2%/EPI 1:100,000 20 ML VIAL. INJ ONE (20:20)
[2021-04-14] MEDS: CLINDAMYCIN HCL 150 MG CAPSULE. PO ONE (20:20)
[2021-04-14] MEDS ORDERED: CLIN-94 PO (21:55)
[2021-04-14] MEDS ORDERED: FLUC200T PO (21:55)
== END 2021-04-14 22:00 | disposition home or self-care (01) ==
LOC: ER 16:16
DX: L02.811 Cutaneous abscess of head [any part, except face] (principal); J44.9 Chronic obstructive pulmonary disease, unspecified; E11.9 Type 2 diabetes mellitus without complications; Z87.891 Personal history of nicotine dependence; Z88.6 Allergy status to analgesic agent
CPT/HCPCS: 10060; 99283; J3490